=== PATIENT | female | born 1965 | race Caucasian/White ===

== ENCOUNTER 2021-10-15 08:36 | Emergency (ER) | payer BC, OTHER ==
[~2021-10-15] VITALS: Ht 154.9 cm; Wt 81.6 kg
[~2021-10-15 08:36] MED LIST: LISINOPRIL20 MG PO
[2021-10-15] MEDS ORDERED: ONDANSETRON HCL INJ 2MG/ML 2ML 2 MG/ML VIAL IV STA (09:24)
[2021-10-15] MEDS ORDERED: REMDESIVIR 200MG 200 MG in SODIUM CHLORIDE 0.9% 100 ML IV ONE (09:30)
[2021-10-15] MEDS ORDERED: SODIUM CHLORIDE 0.9% 100 ML ONE (10:22)
[2021-10-15 11:10] VITALS: BP 141/73
== END 2021-10-15 11:05 | disposition home or self-care (01) ==
LOC: ER 08:46
DX: U07.1 COVID-19 (principal); R06.02 Shortness of breath; R05.9 Cough, unspecified; I10 Essential (primary) hypertension
CPT/HCPCS: 99283; J2405; J7050